=== PATIENT | female | born 1960 | race American Indian/Alaskan Native ===

== ENCOUNTER 2016-09-08 06:58 | Emergency (ER) | payer SELFPAY ==
[2016-09-08 07:58] LABS: Basophils % (Auto) 0.5 % (0.0-1.8); Eosinophils % (Auto) 0.2 % (0.0-4.3); Hematocrit 41.9 % (30.3-42.9); Hemoglobin 14.4 gm/dl (10.1-14.3); Mean Corpuscular HGB Conc 34 % (30-34); Mean Corpuscular Hemoglobin 31 pg (28-32); Mean Corpuscular Volume 90 fl (79-97); Platelet Count 181 K/mm3 (140-440); Red Blood Count 4.68 M/mm3 (3.65-5.03); Red Cell Distribution Width 13.7 % (13.2-15.2); White Blood Count 7.8 K/mm3 (4.5-11.0)
[2016-09-08 08:15] LABS: Anion Gap 21 mmol/L; BUN/Creatinine Ratio 15.45; Blood Urea Nitrogen 17 mg/dL (7-17); Calcium 8.6 mg/dL (8.4-10.2); Carbon Dioxide 22 mmol/L (22-30); Glucose 109 mg/dL (65-100); Potassium 3.8 mmol/L (3.6-5.0); Sodium 137 mmol/L (137-145)
--- NOTE | 2016-09-08 12:52 | XRay Report ---
CHEST 2 VIEWS INDICATION: Cough. COMPARISON: None similar at this institution. FINDINGS: PA and lateral chest radiographs demonstrate normal cardiomediastinal silhouette. Aortic knob calcifications. Clear lungs. Slight thoracic levocurvature. CONCLUSION: No acute disease in the chest. Thank you for the opportunity to participate in this patient's care.
[2016-09-08] MEDS ORDERED: DUONEB 0.5 MG-3 MG/3 ML SOLN IH ONE (13:22)
[2016-09-08] MEDS ORDERED: VALIUM IM ONE (13:22)
[2016-09-08] MEDS ORDERED: DECADRON PO ONE ×3 (13:22→14:00)
--- NOTE | 2016-09-08 13:22 | Emergency Department Report ---
HPI - General Chief Complaint: Chest Pain Time Seen by Provider: 09/08/16 12:37 - HPI HPI: This is a 56-year-old -[place] female who presents to the emergency department with a five-day history of pain and stiffness to the right side of the neck/shoulder/back, decreased appetite, and a productive cough. She denies any chest pain, diaphoresis. She denies any significant shortness of breath but does complain of some wheezing. She denies any past medical history. She is a tobacco smoker. No recent travel or sick contacts at home. She's been trying Robitussin and some [id number] medications without any relief. No history of NM, CVA, PE/DVT. She was driven in by a family member to be seen today. ED Past Medical Hx - Past Medical History Previous Medical History?: No - Surgical History Past Surgical History?: Yes Hx Appendectomy: Yes - Social History Smoking Status: Current Every Day Smoker Substance Use Type: None - Medications Home Medications: Home Medications Medication Instructions Recorded Confirmed Last Taken Type ALBUTEROL Inhaler [ProAir HFA 2 puff IH QID PRN #1 inhalation 09/08/16 Unknown Rx Inhaler] Benzonatate [Tessalon Perles] 100 mg PO Q8HR PRN #20 capsule 09/08/16 Unknown Rx Diazepam Tab [Valium] 2 mg PO TID PRN #14 tablet 09/08/16 Unknown Rx ED Review of Systems ROS: Stated complaint: BODY PAIN Other details as noted in HPI Comment: All other systems reviewed and negative Constitutional: denies: chills, fever Eyes: denies: eye pain, eye discharge, vision change ENT: denies: ear pain, throat pain Respiratory: cough, wheezing Cardiovascular: denies: palpitations, edema Gastrointestinal: nausea. denies: abdominal pain Genitourinary: denies: urgency, dysuria, discharge Musculoskeletal: denies: back pain, joint swelling, arthralgia Skin: denies: rash, lesions Neurological: denies: headache, weakness, paresthesias Physical Exam - Physical Exam Vital Signs: Vital Signs 09/08/16 09/08/16 07:34 12:34 Temperature 98.7 F Pulse Rate 105 H 100 H Respiratory 16 Rate Blood Pressure 106/69 Blood Pressure 114/69 [Left] O2 Sat by Pulse 95 Oximetry Physical Exam: GENERAL: The patient is well-developed well-nourished. HEENT: Normocephalic. Atraumatic. Extraocular motions are intact. Patient has moist mucous membranes. Pupils equal reactive to light bilaterally. NECK: Supple. Trachea is midline. No posterior midline tenderness to palpation , step-off or deformity. Patient has some reproducible tenderness palpation to the right paraspinal region that goes down to the back and shoulder along the trapezius muscle. CHEST/LUNGS: Clear to auscultation. No cough heard during examination. There is no respiratory distress noted. HEART/CARDIOVASCULAR: Regular. There is no tachycardia. There is no gallop rub or murmur. ABDOMEN: Abdomen is soft, nontender. Patient has normal bowel sounds. There is no abdominal distention. SKIN: There is no rash. There is no edema. There is no diaphoresis. NEURO: The patient is awake, alert, and oriented. The patient is cooperative. The patient has no focal neurologic deficits. The patient has normal speech. Cranial nerves II through XII grossly intact. MUSCULOSKELETAL: There is no tenderness or deformity. There is no limitation range of motion. There is no evidence of acute injury. Muscle strength 5 out of 5 for upper and lower extremities bilaterally. ED Course Vital Signs 09/08/16 09/08/16 07:34 12:34 Temperature 98.7 F Pulse Rate 105 H 100 H Respiratory 16 Rate Blood Pressure 106/69 Blood Pressure 114/69 [Left] O2 Sat by Pulse 95 Oximetry ED Medical Decision Making - Lab Data Result diagrams: 09/08/16 07:48 09/08/16 07:48 - EKG Data -: EKG Interpreted by Me EKG shows normal: sinus rhythm (with sinus arrhythmia), axis, intervals, QRS complexes, ST-T waves (nonspecific ST-T changes) Rate: normal - EKG Data When compared to previous EKG there are: previous EKG unavailable Interpretation: nonspecific ST-T wave jovon (sinus arrhythmia) - Radiology Data Radiology results: report reviewed, image reviewed interpreted by me: Chest x-ray did not show any acute process. Heart is normal shape and size. No effusions. No pneumothorax. No signs of pneumonia seen. CT angiography of the chest shows no CT evidence of pulmonary embolism in this patient with emphysematous changes. - Medical Decision Making 56-year-old female presents with the main complaint of right-sided neck pain and shoulder pain. This appears to be muscular skeletal nature. It is reproducible along the taut trapezius muscle. Patient denies any chest pain. She denies any shortness of breath but also complains of a productive cough. A chest x-ray was done that did not show any pneumonia, pleural effusions, pneumothorax or any acute process. Patient's labs have been unremarkable including negative troponins 3 and no signs of infection, electrolyte abnormalities or renal insufficiency. The patient is have some tachycardia after her breathing treatments. She does not have any significant hypoxia but with a complaint of pain to the right upper back a CT angiography of the chest was done to rule out a PE and it did in fact come back negative for pulmonary embolism or dissection. It appears more consistent with emphysematous changes and the patient is a current tobacco smoker. There are no focal, motor or sensory deficits. Patient was given some pain medication and muscle relaxation and did have some improvement. Patient will be given referrals for primary care follow-up. She'll return to the ER with any worsening of her symptoms or any acute distress. - Differential Diagnosis muscle spasm, muscle strain, NM, PE Critical Care Time: No Critical care attestation.: If time is entered above; I have spent that time in minutes in the direct care of this critically ill patient, excluding procedure time. ED Disposition Clinical Impression: Musculoskeletal pain, Trapezius muscle spasm, Bronchospasm, Tobacco abuse Disposition: DISCHARGED TO HOME OR SELFCARE Is pt being admited?: No Does the pt Need Aspirin: No Condition: Stable Instructions: How to Stop Smoking (ED), Muscle Spasm (ED), Musculoskeletal Pain (ED), Bronchospasm (ED) Additional Instructions: These follow-up with a primary care doctor the next few days. Return to the emergency department with any worsening of your symptoms or any acute distress. Please try and quit smoking. Prescriptions: ALBUTEROL Inhaler [ProAir HFA Inhaler] 2 puff IH QID PRN #1 inhalation PRN Reason: Shortness Of Breath Benzonatate [Tessalon Perles] 100 mg PO Q8HR PRN #20 capsule PRN Reason: Cough Diazepam Tab [Valium] 2 mg PO TID PRN #14 tablet PRN Reason: Spasms Referrals: PRIMARY CARE, [Primary Care Provider] - 3-5 Days [facility] [Outside] - 3-5 Days [facility] [Outside] - 3-5 Days [facility] [Outside] - 3-5 Days [facility] [Outside] - 3-5 Days Time of Disposition: 18:00
[2016-09-08] MEDS ORDERED: NACL ONE (15:59)
--- NOTE | 2016-09-08 16:58 | Cat Scan Report ---
CTA CHEST INDICATION: Chest pain, shortness of breath. COMPARISON: None similar. FINDINGS: Chest CTA performed following intravenous administration of 100 cc of Omnipaque 350. Rotational MIP's also obtained. Normal heart size. No effusions. No aortic aneurysm, dissection or suspicious pulmonary arterial filling defects. Few aortic atherosclerotic changes. Few small mediastinal lymph nodes with a dominant vascular space lymph node measuring 7 mm in short axis, axial series 2, image 75. Bilateral hilar lymphoid slight soft tissue prominence as well. No size significant axillary lymphadenopathy. Normal airway. Unremarkable thyroid. Diffuse bilateral emphysematous changes, most involving the upper lobes. Mild right upper lobe and some left lower lobe scarring as well. Slight bibasilar bronchiectasis, right more than left. Nonspecific distal esophageal wall thickening, not excluded for gastroesophageal reflux and/or hiatal hernia, amongst others. Images through included upper abdomen reveal no significant abnormality. Slightly lobulated kidneys. Unremarkable bones. CONCLUSION: No CT evidence of pulmonary embolism in this patient with emphysematous changes and few other incidental findings, as above. Please correlate. Thank you for the opportunity to participate in this patient's care.
[2016-09-08] MEDS ORDERED: MORPHINE IV ONE (17:03)
[2016-09-08 17:22] VITALS: BP 117/66
== END 2016-09-08 18:07 | disposition home or self-care (01) ==
LOC: ED 06:58
DX: J98.01 Acute bronchospasm (principal); M62.838 Other muscle spasm; M79.1 Myalgia; F17.200 Nicotine dependence, unspecified, uncomplicated
CPT/HCPCS: 36415; 71020; 71275; 80048; 84484; 85025; 93005; 93010; 94640; 96372; 96374; 99285; J2270; J3360; J8540; Q9967